=== PATIENT | female | born 1985 | race Caucasian/White ===

== ENCOUNTER 2022-12-08 02:46 | Emergency (ER) | payer OTHER ==
[2022-12-08 02:55] VITALS: BP 149/76; PULSE 74; RESP 18; TEMP 98.2; BMI 34.7
[2022-12-08] MEDS ORDERED: metroNIDAZOLE 250 MG TABLET PO ONE (03:22)
[2022-12-08] MEDS ORDERED: metroNIDAZOLE 250 MG TABLET ONE (03:25)
[2022-12-08] MEDS ORDERED: BUPIVACAINE HCL/PF 0.5% (5MG/ML) 10 ML VIAL ONE (03:51)
[2022-12-08] MEDS ORDERED: BUPIVACAINE HCL/PF 0.5% (5 MG/ML) 30 ML VIAL IJ ONE (03:54)
== END 2022-12-08 04:54 | disposition home or self-care (01) ==
LOC: JER 02:46
PROC: 3E0T3BZ Introduction of Anesthetic Agent into Peripheral Nerves and Plexi, Percutaneous Approach (ICD-10-PCS; principal; 2022-12-08)
DX: K08.89 Other specified disorders of teeth and supporting structures (principal)
CPT/HCPCS: 99283-25